=== PATIENT | male | born 1985 | race Caucasian/White ===

== ENCOUNTER 2017-05-10 20:46 | Inpatient (IN) | payer OTHER ==
[~2017-05-10] VITALS: Ht 188 cm; Wt 75.3 kg
[~2017-05-10 20:46] MED LIST: CEPH500C3 PO
[2017-05-10] MEDS ORDERED: HALOPERIDOL LACTATE 5 MG/ML AMP IM ONE (21:00)
[2017-05-10 21:05] VITALS: BP 138/64; PULSE 140; RESP 22; TEMP 99.7; O2SAT 97
--- NOTE | 2017-05-10 21:10 | PD ---
HPI Chief Complaint: Bizarre behavior Time Seen by Provider: 21:10 Travel History International Travel<30 days: No (unknown) Contact w/Intl Traveler<30days: No (unknown) History of Present Illness HPI 31yo M brought in as plunkett act for screaming in parking lot and approaching officers to fight. Pt is combative and a threat to himself and others. He is talking and answering some questions, moving all extremities. Does have some abrasions in his upper back. PFSH Social History Tobacco Use: No Allergies-Medications (Allergen,Severity, Reaction): Coded Allergies: No Known Allergies (Unverified , 03/15/14) Reported Meds & Prescriptions Reported Meds & Active Scripts Active No Active Prescriptions or Reported Medications Review of Systems ROS Limitations: Clinical Condition Physical Exam Narrative GENERAL: 31yo M combative. SKIN: Focused skin assessment warm/dry. HEAD: Atraumatic. Normocephalic. EYES: Pupils equal and round at 4mm bilaterally. ENT: No nasal bleeding or discharge. Mucous membranes pink and moist. NECK: Trachea midline. No JVD. CARDIOVASCULAR: Regular rate and rhythm. No murmur appreciated. RESPIRATORY: No accessory muscle use. Clear to auscultation. Breath sounds equal bilaterally. GASTROINTESTINAL: Abdomen soft, non-tender, nondistended. No rebound tenderness or guarding. MUSCULOSKELETAL: Abrasions on bilateral upper back. NEUROLOGICAL: Awake and alert. Moving all extremities. Limited exam due to being combative. PSYCHIATRIC: Inappropriate mood and affect; poor insight and judgment. Data Data Last Documented VS Vital Signs Date Time Temp Pulse Resp B/P (MAP) Pulse Ox O2 Delivery O2 Flow Rate FiO2 05/10/17 22:31 109 20 127/78 (94) 99 Room Air 05/10/17 21:05 99.7 Orders Orders Haloperidol Inj (Haldol Inj) (05/10/17 21:00) Complete Blood Count With Diff (05/10/17 20:52) Comprehensive Metabolic Panel (05/10/17 20:52) Electrocardiogram (05/10/17 20:52) Psych Screen (05/10/17 20:52) Restraints Non-Violent NENA.Q3H (05/10/17 20:52) Drug Screen, Random Urine (05/10/17 20:52) Alcohol (Ethanol) (05/10/17 20:52) Ct Brain W/O Iv Contrast(Rout) (05/10/17 ) Thyroid Stimulating Hormone (05/10/17 20:52) Chest, Single Ap (05/10/17 ) Sodium Chlor 0.9% 1000 Ml Inj (Ns 1000 M (05/10/17 21:30) Creatine Kinase (Cpk) (05/10/17 21:17) CKMB (05/10/17 20:52) CKMB% (05/10/17 20:52) Sodium Chlor 0.9% 1000 Ml Inj (Ns 1000 M (05/10/17 22:45) Sodium Chlor 0.9% 1000 Ml Inj (Ns 1000 M (05/10/17 22:45) Admit Order (Ed Use Only) (05/10/17 22:51) Labs Laboratory Tests Test 05/10/17 20:52 05/10/17 21:05 Total Creatine Kinase 5293 U/L Creatine Kinase MB 4.3 NG/ML Creatine Kinase MB % 0.1 % White Blood Count 10.9 TH/MM3 Red Blood Count 5.06 MIL/MM3 Hemoglobin 15.3 GM/DL Hematocrit 44.0 % Mean Corpuscular Volume 86.8 FL Mean Corpuscular Hemoglobin 30.3 PG Mean Corpuscular Hemoglobin Concent 34.9 % Red Cell Distribution Width 12.7 % Platelet Count 235 TH/MM3 Mean Platelet Volume 7.0 FL Neutrophils (%) (Auto) 40.7 % Lymphocytes (%) (Auto) 54.6 % Monocytes (%) (Auto) 4.1 % Eosinophils (%) (Auto) 0.2 % Basophils (%) (Auto) 0.4 % Neutrophils # (Auto) 4.4 TH/MM3 Lymphocytes # (Auto) 5.9 TH/MM3 Monocytes # (Auto) 0.4 TH/MM3 Eosinophils # (Auto) 0.0 TH/MM3 Basophils # (Auto) 0.0 TH/MM3 CBC Comment AUTO DIFF Differential Total Cells Counted 100 Neutrophils % (Manual) 30 % Lymphocytes % 66 % Monocytes % 2 % Basophils % 1 % Neutrophils # (Manual) 3.4 TH/MM3 Metamyelocytes 1 % Differential Comment FINAL DIFF MANUAL Platelet Estimate NORMAL Platelet Morphology Comment NORMAL Red Cell Morphology Comment NORMAL Blood Urea Nitrogen 11 MG/DL Creatinine 1.41 MG/DL Random Glucose 113 MG/DL Total Protein 7.9 GM/DL Albumin 4.4 GM/DL Calcium Level 9.4 MG/DL Alkaline Phosphatase 65 U/L Aspartate Amino Transf (AST/SGOT) 84 U/L Alanine Aminotransferase (ALT/SGPT) 41 U/L Total Bilirubin 0.9 MG/DL Sodium Level 143 MEQ/L Potassium Level 3.5 MEQ/L Chloride Level 111 MEQ/L Carbon Dioxide Level 19.3 MEQ/L Anion Gap 13 MEQ/L Estimat Glomerular Filtration Rate 59 ML/MIN Thyroid Stimulating Hormone 3rd Gen 1.260 uIU/ML Ethyl Alcohol Level 295 MG/DL [facility] Medical Decision Making Medical Screen Exam Complete: Yes Emergency Medical Condition: Yes Interpretation(s) EKG: Sinus tachycardia at 113bpm. Normal axis. No ST segment elevation or depression. Differential Diagnosis Drug induced psychosis vs. schizophrenia vs. ICH v. electrolyte abnormality Narrative Course 31yo M brought in as plunkett act for screaming, approaching police radio dispatcher to fight. Pt is acting bizarre. However, we do not have any prior record of a psych history. He does have some abrasion on bilateral upper back. Lungs are clear. Will do CXR. Will do CT brain since pt does not have a psych history on our record. Pt given haldol 5mg IM because he was a threat to himself and others and placed in soft restraints. Labs reviewed, no leukocytosis. CPK elevated at 5293. Creatinine elevated at 1.41. Pt given NS IVF x2. CXR and CT brain negative. Discussed with Dr. Brush and accepted to her service for rhabdomyolysis and ARLENE. Diagnosis Primary Impression: Rhabdomyolysis Qualified Codes: M62.82 - Rhabdomyolysis Admitting Information Admitting Physician Requests: Observation Scripts No Active Prescriptions or Reported Meds Yue Zhang DO May 10, 2017 21:10
[2017-05-10] MEDS ORDERED: SODIUM CHLOR 0.9% 1000 ML INJ 1,000 ML IV ONE ×3 (21:30→22:45)
--- NOTE | 2017-05-10 21:35 | RADRPT ---
EXAM DATE/TIME: 05/10/2017 21:08 [facility] COMPARISON: No previous studies available for comparison. INDICATIONS : Altered mental status- shortness of breath. MEDICAL HISTORY : None. SURGICAL HISTORY : None. ENCOUNTER: Initial ACUITY: 1 day PAIN SCORE: Non-responsive. LOCATION: Bilateral chest FINDINGS: A single view of the chest demonstrates the lungs to be symmetrically aerated without evidence of mas s, infiltrate or effusion. The cardiomediastinal contours are unremarkable. Osseous structures are intact. CONCLUSION: No acute disease. Cory Aguero MD on May 10, 2017 at 21:34 Board Certified Radiologist. This report was verified electronically.
[2017-05-10 21:36] LABS: AUTOMATED NEUTROPHIL # 4.4 TH/MM3 (1.8-7.7); BASOPHIL % 0.4 % (0.0-2.0); EOSINOPHIL % 0.2 % (0.0-4.0); LYMPH % 54.6 % (9.0-44.0); LYMPHOCYTE # 5.9 TH/MM3 (1.0-4.8); MEAN CELL VOLUME 86.8 FL (80.0-100.0); MEAN CORPUSCULAR HEMOGLOBIN 30.3 PG (27.0-34.0); MEAN CORPUSCULAR HGB CONC 34.9 % (32.0-36.0); MONO % 4.1 % (0.0-8.0); NEUT % 40.7 % (16.0-70.0); PLATELET COUNT 235 TH/MM3 (150-450); RED BLOOD COUNT 5.06 MIL/MM3 (4.50-5.90); RED CELL DISTRIBUTION WIDTH 12.7 % (11.6-17.2); WHITE BLOOD COUNT 10.9 TH/MM3 (4.0-11.0)
[2017-05-10 21:39] LABS: HEMO FLAGS AUTO DIFF
[2017-05-10 21:52] LABS: ANION GAP 13 MEQ/L (5-15); AST (GOT) 84 U/L (15-37); BICARBONATE 19.3 MEQ/L (21.0-32.0); BLOOD UREA NITROGEN 11 MG/DL (7-18); CHLORIDE 111 MEQ/L (98-107); GLOMERULAR FILTRATION RATE 59 ML/MIN (>89); POTASSIUM 3.5 MEQ/L (3.5-5.1); SODIUM (NA) 143 MEQ/L (136-145)
[2017-05-10 21:54] LABS: ALT (GPT) 41 U/L (12-78)
[2017-05-10 22:03] LABS: ALKALINE PHOSPHATASE 65 U/L (45-117); TOTAL BILIRUBIN ADULT 0.9 MG/DL (0.2-1.0)
[2017-05-10 22:04] LABS: BASOPHILS 1 % (0-2); METAMYELOCYTES 1 % (0-1); NEUTROPHIL # MANUAL DIFF 3.4 TH/MM3 (1.8-7.7); POLYS (SEG NEUTROPHILS) 30 % (16-70); WBC DIFF SAMPLE 100
[2017-05-10 22:07] LABS: PLATELET ESTIMATE SMEAR NORMAL (NORMAL); PLATELET MORPHOLOGY NORMAL (NORMAL)
[2017-05-10 22:08] LABS: SCAN/DIFF FINAL DIFF MANUAL
[2017-05-10 22:09] LABS: ALCOHOL 295 MG/DL (0-5)
[2017-05-10 22:31] VITALS: BP 127/78; PULSE 109; RESP 20; O2SAT 99
--- NOTE | 2017-05-10 22:47 | RADRPT ---
EXAM DATE/TIME: 05/10/2017 22:10 [facility] COMPARISON: No previous studies available for comparison. INDICATIONS : Altered mental status. RADIATION DOSE: 37.90 CTDIvol (mGy) MEDICAL HISTORY : Non-responsive. SURGICAL HISTORY : Non-responsive. ENCOUNTER: Initial ACUITY: 1 day PAIN SCALE: Non-responsive LOCATION: cranial TECHNIQUE: Multiple contiguous axial images were obtained of the head. Using automated exposure control and adj ustment of the mA and/or kV according to patient size, radiation dose was kept as low as reasonably a chievable to obtain optimal diagnostic quality images. DICOM format image data is available electro nically for review and comparison. FINDINGS: CEREBRUM: The ventricles are normal for age. No evidence of midline shift, mass lesion, hemorrhage or acute in farction. No extra-axial fluid collections are seen. POSTERIOR FOSSA: The cerebellum and brainstem are intact. The 4th ventricle is midline. The cerebellopontine angle i s unremarkable. EXTRACRANIAL: The visualized portion of the orbits is intact. SKULL: The calvaria is intact. No evidence of skull fracture. CONCLUSION: No acute disease. Cory Aguero MD on May 10, 2017 at 22:45 Board Certified Radiologist. This report was verified electronically.
[2017-05-10 23:00] LABS: CKMB 4.3 NG/ML (0.5-3.6)
[2017-05-10] MEDS ORDERED: LACTULOSE SYRUP 20 GM/30 ML CUP PO PRN (23:15)
[2017-05-10] MEDS ORDERED: MAGNESIUM HYDROXIDE SUSP 30 ML CUP PO PRN (23:15)
[2017-05-10] MEDS ORDERED: BISACODYL 10 MG SUPP RECTAL PRN (23:15)
[2017-05-10] MEDS ORDERED: ACETAMINOPHEN 325 MG TAB PO PRN (23:15)
[2017-05-10] MEDS ORDERED: SENNOSIDES 8.6 MG TAB PO PRN (23:15)
[2017-05-10] MEDS ORDERED: ONDANSETRON HCL 4 MG/2 ML VIAL IVP PRN (23:15)
--- NOTE | 2017-05-10 23:18 | HHI.HP ---
[facility] Unknown Admission Diagnosis Rhabdomyolysis Diagnoses: (1) Agitation Diagnosis: Principal (2) Rhabdomyolysis Diagnosis: Principal (3) Renal insufficiency Diagnosis: Principal (4) Alcohol intoxication Diagnosis: Principal Travel History International Travel<30 Days: No (unknown) Contact w/Intl Traveler <30 Da: No (unknown) Traveled to Known Affected Are: No History of Present Illness This is a 31-year-old male with no apparent PMH was brought to the ER by Police under Mckay Act secondary to agitation/delirium. Pt was apparently found screaming in the street, attempting to fight officers when they approached. Significantly combative, deemed a threat to himself/others and placed under Mckay Act. Pt not providing any history at the moment. BP 130/64, HR 140, O2 sat 97% on RA, Temp 99.7. CBC essentially unremarkable. Creatinine 1.41, no previous labs for comparison. CPK 5293. Alcohol 295. CT Head with no acute findings. Currently in restraints, s/p Haldol in ER. Review of Systems Except as stated in HPI: all other systems reviewed are Neg ROS: 14 point review of systems otherwise negative. Past Family Social History Past Medical History PMH: None Past Surgical History PAST SURGICAL HISTORY: Unknown Allergies: Coded Allergies: No Known Allergies (Unverified , 03/15/14) Family History PAST FAMILY HISTORY: Unknown Social History PAST SOCIAL HISTORY: Unknown Physical Exam Vital Signs Vital Signs Date Time Temp Pulse Resp B/P (MAP) Pulse Ox O2 Delivery O2 Flow Rate FiO2 05/10/17 22:31 109 20 127/78 (94) 99 Room Air 05/10/17 21:05 99.7 140 22 138/64 (88) 97 Physical Exam PE: GENERAL: Elderly white male in no acute distress, currently calm after Haldol, + restraints. HEENT: PERRLA, EOMI. No scleral icterus or conjunctival pallor. No lid lag or facial droop. CARDIOVASCULAR: Regular rate and rhythm. No obvious murmurs to auscultation. No chest tenderness to palpation. RESPIRATORY: No obvious rhonchi or wheezing. Clear to auscultation. Breath sounds equal bilaterally. GASTROINTESTINAL: Abdomen soft, non-tender, nondistended. BS normal. MUSCULOSKELETAL: Extremities without clubbing, cyanosis, or edema. No obvious deformities. NEUROLOGICAL: Lethargic. No focal neurologic deficits. Moving both upper and lower extremities spontaneously. Laboratory Laboratory Tests Test 05/10/17 20:52 05/10/17 21:05 Total Creatine Kinase 5293 Creatine Kinase MB 4.3 Creatine Kinase MB % 0.1 White Blood Count 10.9 Red Blood Count 5.06 Hemoglobin 15.3 Hematocrit 44.0 Mean Corpuscular Volume 86.8 Mean Corpuscular Hemoglobin 30.3 Mean Corpuscular Hemoglobin Concent 34.9 Red Cell Distribution Width 12.7 Platelet Count 235 Mean Platelet Volume 7.0 Neutrophils (%) (Auto) 40.7 Lymphocytes (%) (Auto) 54.6 Monocytes (%) (Auto) 4.1 Eosinophils (%) (Auto) 0.2 Basophils (%) (Auto) 0.4 Neutrophils # (Auto) 4.4 Lymphocytes # (Auto) 5.9 Monocytes # (Auto) 0.4 Eosinophils # (Auto) 0.0 Basophils # (Auto) 0.0 CBC Comment AUTO DIFF Differential Total Cells Counted 100 Neutrophils % (Manual) 30 Lymphocytes % 66 Monocytes % 2 Basophils % 1 Neutrophils # (Manual) 3.4 Metamyelocytes 1 Differential Comment FINAL DIFF MANUAL Platelet Estimate NORMAL Platelet Morphology Comment NORMAL Red Cell Morphology Comment NORMAL Blood Urea Nitrogen 11 Creatinine 1.41 Random Glucose 113 Total Protein 7.9 Albumin 4.4 Calcium Level 9.4 Alkaline Phosphatase 65 Aspartate Amino Transf (AST/SGOT) 84 Alanine Aminotransferase (ALT/SGPT) 41 Total Bilirubin 0.9 Sodium Level 143 Potassium Level 3.5 Chloride Level 111 Carbon Dioxide Level 19.3 Anion Gap 13 Estimat Glomerular Filtration Rate 59 Thyroid Stimulating Hormone 3rd Gen 1.260 Ethyl Alcohol Level 295 Result Diagram: 05/10/17210405/10/172104 Caprini VTE Risk Assessment Caprini VTE Risk Assessment: No/Low Risk (score <= 1) Caprini Risk Assessment Model Point Value = 1 Point Value = 2 Point Value = 3 Point Value = 5 Age 41-60 Minor surgery BMI > 25 kg/m2 Swollen legs Varicose veins or History of unexplained or recurrent spontaneous Oral contraceptives or hormone replacement Sepsis (< 1 month) Serious lung disease, including pneumonia (< 1 month) Abnormal pulmonary function Acute myocardial infarction Congestive heart failure (< 1 month) History of inflammatory bowel disease Medical patient at bed rest Age 61-74 Arthroscopic surgery Major open surgery (> 45 min) Laparoscopic surgery (> 45 min) Malignancy Confined to bed (> 72 hours) Immobilizing plaster cast Central venous access Age >= 75 History of VTE Family history of VTE Factor V Leiden Prothrombin [id number] Lupus anticoagulant Anticardiolipin antibodies Elevated serum homocysteine Heparin-induced thrombocytopenia Other congenital or acquired thrombophilia Stroke (< 1 month) Elective arthroplasty Hip, pelvis, or leg fracture Acute spinal cord injury (< 1 month) Prophylaxis Regimen Total Risk Factor Score Risk Level Prophylaxis Regimen 0-1 Low Early ambulation 2 Moderate Order ONE of the following: *Sequential Compression Device (SCD) *Heparin 5000 units SQ BID 3-4 Higher Order ONE of the following medications: *Heparin 5000 units SQ TID *Enoxaparin/Lovenox 40 mg SQ daily (WT < 150 kg, CrCl > 30 mL/min) *Enoxaparin/Lovenox 30 mg SQ daily (WT < 150 kg, CrCl > 10-29 mL/min) *Enoxaparin/Lovenox 30 mg SQ BID (WT < 150 kg, CrCl > 30 mL/min) AND/OR *Sequential Compression Device (SCD) 5 or more Highest Order ONE of the following medications: *Heparin 5000 units SQ TID (Preferred with Epidurals) *Enoxaparin/Lovenox 40 mg SQ daily (WT < 150 kg, CrCl > 30 mL/min) *Enoxaparin/Lovenox 30 mg SQ daily (WT < 150 kg, CrCl > 10-29 mL/min) *Enoxaparin/Lovenox 30 mg SQ BID (WT < 150 kg, CrCl > 30 mL/min) AND *Sequential Compression Device (SCD) Assessment and Plan Problem List: (1) Agitation ICD Code: R45.1 - Restlessness and agitation (2) Rhabdomyolysis ICD Code: M62.82 - Rhabdomyolysis (3) Renal insufficiency ICD Code: N28.9 - Disorder of kidney and ureter, unspecified (4) Alcohol intoxication ICD Code: F10.929 - Alcohol use, unspecified with intoxication, unspecified Assessment and Plan A/P: 1. Agitation: likely drug-related, significantly combative/threat to himself and others, currently under Mckay Act. U/a and Urine Drug Screen pending, s/p Haldol in ER, +restraints. Ativan prn as needed, CT Head w/ no acute findings, images reviewed by me. 2. Rhabdomyolysis: CPK 5293, suspected secondary to drug use specifically cocaine, Urine Drug Screen pending. IVF for hydration, repeat CPK for trend. 3. Alcohol Intoxication: Alcohol 295, IVF, Ativan IV prn 4. Renal Insufficiency: Creatinine 1.41, no previous labs for comparison, IVF for hydration, repeat labs in am. 5. DVT Prophylaxis: SCD/Teds. 6. Social work for d/c planning as needed. 7. Case discussed w/ ER physician at length Physician Certification 2 Midnight Certification Type: Admission for Inpatient Services Order for Inpatient Services The services are ordered in accordance with Medicare regulations or non- Medicare payer requirements, as applicable. In the case of services not specified as inpatient-only, they are appropriately provided as inpatient services in accordance with the 2-midnight benchmark. Estimated LOS (days): 2 days is the estimated time the patient will need to remain in the hospital, assuming treatment plan goals are met and no additional complications. Post-Hospital Plan: Not yet determined Kamilah Brush MD May 10, 2017 23:18
[2017-05-10] MEDS: SODIUM CHLOR 0.9% 1000 ML INJ 1,000 ML IV SCH (23:24)
[2017-05-11] VITALS (8 sets, daily range): BP systolic 105–134; BP diastolic 54–75; PULSE 63–97; RESP 18–20; TEMP 97–98.7; O2SAT 97–99
[2017-05-11] MEDS: SODIUM CHLOR 0.9% 1000 ML INJ 1,000 ML IV SCH ×3 (02:57→16:45)
--- NOTE | 2017-05-11 07:36 | EKG ---
Date Performed: 05/10/2017 Time Performed: 21:14:00 PTAGE: 31 years EKG: Baseline artifact present Probable sinus tachycardia ABNORMAL RHYTHM ECG NO PREVIOUS TRACING DOCTOR: Dustin Cobb Interpretating Date/Time 05/11/2017 07:35:29
[2017-05-11 07:55] LABS: AUTOMATED NEUTROPHIL # 7.6 TH/MM3 (1.8-7.7); BASOPHIL % 0.2 % (0.0-2.0); EOSINOPHIL % 0.2 % (0.0-4.0); HEMATOCRIT 40.1 % (39.0-51.0); HEMO FLAGS DIFF FINAL; LYMPHOCYTE # 2.7 TH/MM3 (1.0-4.8); MEAN CELL VOLUME 86.3 FL (80.0-100.0); MEAN CORPUSCULAR HEMOGLOBIN 30.2 PG (27.0-34.0); MONO % 5.3 % (0.0-8.0); NEUT % 69.3 % (16.0-70.0); PLATELET COUNT 177 TH/MM3 (150-450); RED BLOOD COUNT 4.65 MIL/MM3 (4.50-5.90); RED CELL DISTRIBUTION WIDTH 12.9 % (11.6-17.2)
[2017-05-11] MEDS: SODIUM CHLORIDE 0.9% FLUSH 10 ML FLUSH IV FLUSH SCH ×2 (08:26→21:00)
[2017-05-11] MEDS: DOCUSATE SODIUM 50 MG/SENNA 8.6 MG TAB PO SCH ×2 (08:26→21:24)
[2017-05-11 08:36] LABS: ALKALINE PHOSPHATASE 60 U/L (45-117); ALT (GPT) 45 U/L (12-78); ANION GAP 9 MEQ/L (5-15); AST (GOT) 106 U/L (15-37); BICARBONATE 21.7 MEQ/L (21.0-32.0); BLOOD UREA NITROGEN 9 MG/DL (7-18); CHLORIDE 114 MEQ/L (98-107); CREATINE KINASE 5965 U/L (39-308); GLOMERULAR FILTRATION RATE 90 ML/MIN (>89); POTASSIUM 3.6 MEQ/L (3.5-5.1); SODIUM (NA) 145 MEQ/L (136-145)
[2017-05-11 09:10] LABS: CKMB 10.4 NG/ML (0.5-3.6)
[2017-05-11] MEDS: SODIUM CHLORIDE 0.9% FLUSH 10 ML FLUSH IV FLUSH PRN ×2 (11:31→18:39)
[2017-05-11] MEDS: LORazepam 2 MG/ML VIAL IV PUSH PRN ×2 (11:31→18:39)
--- NOTE | 2017-05-11 12:10 | HHI.PR ---
Subjective Remarks f/u Altered mental status and rhabdomyolysis Patient stated that he was drunk last night. He is AAO 3. He denies any depression, suicidal homicidal ideations. He is asking to go home. Patient stated that he does not take any drugs and that this was purely alcohol. He has no other complaints. His sitter and his nurse at the bedside during interview. Objective Vitals Vital Signs Date Time Temp Pulse Resp B/P (MAP) Pulse Ox O2 Delivery O2 Flow Rate FiO2 05/11/17 12:00 98.7 97 20 134/75 (94) 99 05/11/17 08:36 75 05/11/17 07:55 98.5 79 20 105/54 (71) 97 05/11/17 06:03 63 05/11/17 03:30 127/70 (89) 05/11/17 03:30 97.0 84 20 127/70 (89) 97 05/11/17 00:09 05/10/17 22:31 109 20 127/78 (94) 99 Room Air 05/10/17 21:05 99.7 140 22 138/64 (88) 97 I/O 05/10/17 05/10/17 05/10/17 05/11/17 05/11/17 05/11/17 06:59 14:59 22:59 06:59 14:59 22:59 Intake Total 4000 ml 2000 ml Balance 4000 ml 2000 ml Intake IV Total 4000 ml 2000 ml Result Diagram: 05/11/17 0706 05/11/17 0706 Objective Remarks GENERAL: in NAD CARDIOVASCULAR: Regular rate and rhythm without murmurs, gallops, or rubs. RESPIRATORY: Breath sounds equal bilaterally. No accessory muscle use. GASTROINTESTINAL: Abdomen soft, non-tender, nondistended. MUSCULOSKELETAL: No cyanosis, or edema. BACK: Nontender without obvious deformity. No CVA tenderness. Medications and IVs Current Medications Haloperidol Lactate (Haldol Inj) 5 mg ONCE ONCE IM Last administered on 21:05; Start 05/10/17 at 21:00; Stop 05/10/17 at 21:01; Status DC Sodium Chloride 1,000 ml @ 999 mls/hr BOLUS ONCE IV Last administered on 21:22; Start 05/10/17 at 21:30; Stop 05/10/17 at 22:30; Status DC Sodium Chloride 1,000 ml @ 999 mls/hr BOLUS ONCE IV Last administered on 22:35; Start 05/10/17 at 22:45; Stop 05/10/17 at 23:45; Status DC Sodium Chloride 1,000 ml @ 999 mls/hr BOLUS ONCE IV Last administered on 22:35; Start 05/10/17 at 22:45; Stop 05/10/17 at 23:45; Status DC Sodium Chloride 1,000 ml @ 100 mls/hr Q10H IV Last administered on 05/10/17 23:24; Start 05/10/17 at 23:08 Sodium Chloride (NS Flush) 2 ml UNSCH PRN IV FLUSH FLUSH AFTER USING IV ACCESS Last administered on 05/11/17 11:31; Start 05/10/17 at 23:15 Sodium Chloride (NS Flush) 2 ml BID IV FLUSH ; Start 05/11/17 at 09:00 Ondansetron HCl (Zofran Inj) 4 mg Q6H PRN IVP NAUSEA OR VOMITING; Start at 23:15 Acetaminophen (Tylenol) 650 mg Q6H PRN PO FEVER/PAIN SCALE 1 TO 2; Start 05/10 at 23:15 Senna/Docusate Sodium (Angelica-Colace) 1 tab BID PO ; Start 05/11/17 at 09:00 Magnesium Hydroxide (Milk Of Magnesia Liq) 30 ml Q12H PRN PO Mild constipation ; Start 05/10/17 at 23:15 Sennosides (Senokot) 17.2 mg Q12H PRN PO Moderate constipation; Start at 23:15 Bisacodyl (Dulcolax Supp) 10 mg DAILY PRN RECTAL SEVERE CONSITIPATION/ IF NPO; Start 05/10/17 at 23:15 Lactulose (Lactulose Liq) 30 ml DAILY PRN PO SEVERE CONSITIPATION; Start 05/10 at 23:15 Lorazepam (Ativan Inj) 1 mg Q2H PRN IV PUSH AGITATION/WITHDRAWAL Last administered on 05/11/17 11:31; Start 05/10/17 at 23:30 A/P Problem List: (1) Agitation ICD Code: R45.1 - Restlessness and agitation (2) Rhabdomyolysis ICD Code: M62.82 - Rhabdomyolysis (3) Renal insufficiency ICD Code: N28.9 - Disorder of kidney and ureter, unspecified (4) Alcohol intoxication ICD Code: F10.929 - Alcohol use, unspecified with intoxication, unspecified Assessment and Plan Altered mental status, resolved. -Most likely metabolic secondary to drug use. Positive for alcohol. Will get urine drug screen. Patient currently Mckay act. CT scan the head is negative. -Symptoms since to resolve and he seems back to his baseline. Pending consult from psychiatrist due to Mckay act. Rhabdomyolysis: CPK 5293, suspected secondary to drug -CPK stable. Creatinine improved drastically. Continued to encourage fluid intake. -Still pending urine drug screen. Dealt with patient's nurse. Also educated patient in regards to diagnosis and he stated that he understood. Alcohol Intoxication: Alcohol 295 -Education on alcohol use. -Continue IV fluids. Acute renal insufficiency: Creatinine 1.41 -Most likely secondary to dehydration and rhabdomyolysis. -Resolved. -Continue to encourage fluid intake. DVT Prophylaxis: SCD/Teds. Discharge Planning If patient is able to tolerate oral intake and is cleared by psychiatrists can be discharged home. Marry Moore MD May 11, 2017 12:09
[2017-05-11 12:14] LABS: BLOOD, URINE NEG (NEG); COMMENT (UR) CULT NOT INDICATED; CULTURE IF INDICATED CULT NOT INDICATED; GLUCOSE,URINE NEG (NEG); KETONE, URINE TRACE mg/dL (NEG); MUCUS URINE FEW /lpf (OCC); NITRITE,URINE NEG (NEG); PH, URINE 5.5 (5.0-8.5); SQUAMOUS EPITHELIAL CELL URINE <1 /hpf (0-5); URINE COLOR YELLOW (YELLW/STRAW)
[2017-05-11 14:42] LABS: CKMB 8.8 NG/ML (0.5-3.6)
[2017-05-12] VITALS: BP 118/63; PULSE 100; RESP 18; TEMP 98.9; O2SAT 95
[2017-05-12 04:00] VITALS: BP 128/73; PULSE 84; RESP 20; TEMP 97; O2SAT 94
[2017-05-12] MEDS: SODIUM CHLOR 0.9% 1000 ML INJ 1,000 ML IV SCH (05:08)
[2017-05-12 08:31] VITALS: BP 135/79; PULSE 85; RESP 20; TEMP 97.9; O2SAT 100
[2017-05-12] MEDS: SODIUM CHLORIDE 0.9% FLUSH 10 ML FLUSH IV FLUSH SCH (09:00)
[2017-05-12] MEDS: DOCUSATE SODIUM 50 MG/SENNA 8.6 MG TAB PO SCH (09:00)
--- NOTE | 2017-05-12 11:24 | HHI.DS ---
Discharge Summary Admission Date May 10, 2017 at 22:52 Discharge Date: May 12, 2017 Admitting Diagnosis Rhabdomyolysis (1) Agitation ICD Code: R45.1 - Restlessness and agitation Diagnosis: Principal (2) Rhabdomyolysis ICD Code: M62.82 - Rhabdomyolysis (3) Renal insufficiency ICD Code: N28.9 - Disorder of kidney and ureter, unspecified Diagnosis: Principal (4) Alcohol intoxication ICD Code: F10.929 - Alcohol use, unspecified with intoxication, unspecified Diagnosis: Principal Procedures See hospital course Brief History - From Admission This is a 31-year-old male with no apparent PMH was brought to the ER by Police under Mckay Act secondary to agitation/delirium. Pt was apparently found screaming in the street, attempting to fight officers when they approached. Significantly combative, deemed a threat to himself/others and placed under Mckay Act. Pt not providing any history at the moment. BP 130/64, HR 140, O2 sat 97% on RA, Temp 99.7. CBC essentially unremarkable. Creatinine 1.41, no previous labs for comparison. CPK 5293. Alcohol 295. CT Head with no acute findings. Currently in restraints, s/p Haldol in ER. CBC/BMP: 05/11/17 0706 05/11/17 0706 Significant Findings Laboratory Tests Test 05/10/17 20:52 05/10/17 21:05 05/11/17 07:06 05/11/17 11:40 Total Creatine Kinase 5293 U/L (39-308) 5965 U/L (39-308) Creatine Kinase MB 4.3 NG/ML (0.5-3.6) 10.4 NG/ML (0.5-3.6) Lymphocytes (%) (Auto) 54.6 % (9.0-44.0) Lymphocytes # (Auto) 5.9 TH/MM3 (1.0-4.8) Lymphocytes % 66 % (9-44) Creatinine 1.41 MG/DL (0.60-1.30) Random Glucose 113 MG/DL (74-106) 73 MG/DL (74-106) Aspartate Amino Transf (AST/SGOT) 84 U/L (15-37) 106 U/L (15-37) Chloride Level 111 MEQ/L (98-107) 114 MEQ/L (98-107) Carbon Dioxide Level 19.3 MEQ/L (21.0-32.0) Estimat Glomerular Filtration Rate 59 ML/MIN (>89) Ethyl Alcohol Level 295 MG/DL (0-5) Calcium Level 7.9 MG/DL (8.5-10.1) Urine Ketones TRACE mg/dL (NEG) Urine Mucus FEW /lpf (OCC) Test 05/11/17 13:10 Total Creatine Kinase 6156 U/L (39-308) Creatine Kinase MB 8.8 NG/ML (0.5-3.6) Imaging Last Impressions Head CT 05/10/17 0000 Signed Impressions: Service Date/Time: Wednesday, May 10, 2017 22:10 - CONCLUSION: No acute disease. Cory Aguero MD Chest X-Ray 05/10/17 0000 Signed Impressions: Service Date/Time: Wednesday, May 10, 2017 21:08 - CONCLUSION: No acute disease. Cory Aguero MD PE at Discharge GENERAL: in NAD CARDIOVASCULAR: Regular rate and rhythm without murmurs, gallops, or rubs. RESPIRATORY: Breath sounds equal bilaterally. No accessory muscle use. GASTROINTESTINAL: Abdomen soft, non-tender, nondistended. MUSCULOSKELETAL: No cyanosis, or edema. BACK: Nontender without obvious deformity. No CVA tenderness. Pt update on day of discharge Follow-up for agitation Patient is AAO 4. He is not agitated. He is doing well. He has no complaints. He is having good urine output. Patient stated that he saw the psychiatrist and he was told that he can go home. I told patient that I order labs and patient stated that he did not want any labs. Patient denied any depression. Denied any suicidal or homicidal ideations. Hospital Course Altered mental status, resolved. -Most likely metabolic secondary alcoholism. Urine drug screen was negative. Patient currently Mckay act. CT scan the head is negative. -Resolved quickly with time and IV fluids. Since patient was Mckay act psychiatrist was consulted and lifted the Mckay act. Rhabdomyolysis: CPK 5293 -Patient was given IV fluids with improvement in his renal function. -He was then transferred to oral fluids since he was able to tolerate oral intake. Alcohol Intoxication: Alcohol 295 -Education on alcohol use. Acute renal insufficiency: Creatinine 1.41 -Most likely secondary to dehydration and rhabdomyolysis. -Patient was given IV fluids. Acute renal failure resolved with IV fluids. Pt Condition on Discharge: Good Discharge Disposition: Discharge Home Discharge Time: <= 30 minutes Discharge Instructions DIET: Follow Instructions for: As Tolerated, No Restrictions Activities you can perform: Regular-No Restrictions Other Activity Instructions: Avoid excessive alcohol. Follow up Referrals: PCP Follow-up - 1 Week Discontinued Medications: Cephalexin (Keflex) 500 Mg Cap 500 MG PO Q8, #30 Marry Acevedo MD May 12, 2017 11:24
--- NOTE | 2017-05-12 11:24 | HHI.DCPOC ---
Discharge Care Plan Diagnosis: (1) Rhabdomyolysis (2) Renal insufficiency (3) Alcohol intoxication Goals to Promote Your Health * To prevent worsening of your condition and complications * To maintain your health at the optimal level Directions to Meet Your Goals Take your medications as prescribed Follow your dietary instruction Follow activity as directed Keep your appointments as scheduled Take your immunizations and boosters as scheduled If your symptoms worsen call your PCP, if no PCP go to Urgent Care Center or Emergency Room Smoking is Dangerous to Your Health. Avoid second hand smoke Call the 24-hour hour crisis hotline for domestic abuse at Marry Moore MD May 12, 2017 11:24
[2017-05-12 11:51] LABS: BICARBONATE 21.3 MEQ/L (21.0-32.0); POTASSIUM 3.3 MEQ/L (3.5-5.1)
[2017-05-12 12:26] LABS: CKMB 4.1 NG/ML (0.5-3.6)
--- NOTE | 2017-05-12 15:55 | PD.PSY.CON ---
Provisional Diagnosis Admission Date May 10, 2017 at 22:52 Seg[place] I. Alcohol use disorder, alcohol induced mood disorder, history of ADHD Seguin II. Deferred [place] III. No significant medical history History of Present Illness Service Psychiatry Consult Requested By Reason for Consult Mckay act Primary Care Physician Unknown HPI The patient is a 31 years old man, domiciled with his mother, employed , single, with psychiatric history of ADHD, no previous psychiatric hospitalizations, no previous suicidal attempts, alcohol use disorder, no significant medical history, who was brought to the ER under Mckay act by law enforcement due to agitation, aggressive and disorganized behavior industry in the context of alcohol intoxication. On psychiatric evaluation today patient is calm, cooperative and pleasant. Patient says that he was drinking a lot of alcohol, he was completely drunk, he already forgot the reason he was brought to the hospital. Patient denies depressive symptoms, he denies anxiety, he denies rigoberto, he denies psychosis. He denies suicidal and homicidal ideation, he denies visual and auditory hallucinations. He is oriented 3, logical coherent and relevant. No agitation, no aggressive behavior, no paranoia, no delusions of reference are present during this hospitalization. He reports occasional use of alcohol, denies the use of drugs. Review of Systems Except as stated in HPI: all other systems reviewed are Neg Past Family Social History Coded Allergies: No Known Allergies (Unverified , 03/15/14) Discontinued Scripts Cephalexin (Keflex) 500 Mg Cap, 500 MG PO Q8, #30 CAP Prov:Linus Perkins Jr, MD 03/08/14 Social History Patient was born and raised in [place], his mother [place], he is employed, single, his highest level of education is a GED Patient's Strengths (min. 2) Employed Physical Exam Vital Signs Vital Signs Date Time Temp Pulse Resp B/P (MAP) Pulse Ox O2 Delivery O2 Flow Rate FiO2 05/12/17 08:31 97.9 85 20 135/79 (97) 100 05/10/17 22:31 Room Air I/O 05/12/17 05/12/17 05/13/17 08:00 16:00 00:00 Intake Total 1000 ml Balance 1000 ml Lab Results Test 05/12/17 11:15 Blood Urea Nitrogen 9 MG/DL Creatinine 1.03 MG/DL Random Glucose 101 MG/DL Calcium Level 9.1 MG/DL Sodium Level 141 MEQ/L Potassium Level 3.3 MEQ/L Chloride Level 109 MEQ/L Carbon Dioxide Level 21.3 MEQ/L Anion Gap 11 MEQ/L Estimat Glomerular Filtration Rate 84 ML/MIN Total Creatine Kinase 5444 U/L Creatine Kinase MB 4.1 NG/ML Creatine Kinase MB % 0.1 % Mental Status Examination Appearance: Appropriate Consciousness: Alert Orientation: x4 Motor Activity: Normal gait Speech: Unremarkable Language: Adequate Fund of Knowledge: Adequate Attention and Concentration: Adequate Memory: Unremarkable Mood: Appropriate Affect: Appropriate Thought Process & Associations: Intact Thought Content: Appropriate Hallucination Type: None Delusion Type: None Suicidal Ideation: No Suicidal Plan: No Suicidal Intention: No Homicidal Ideation: No Homicidal Plan: No Homicidal Intention: No Insight: Adequate Judgment: Adequate Assessment & Plan Problem List: (1) Alcohol abuse with alcohol-induced mood disorder ICD Codes: F10.14 - Alcohol abuse with alcohol-induced mood disorder Assessment & Plan: On psychiatric evaluation today the patient does not present any evidence of acute or significant symptomatology of depression, anxiety, rigoberto or psychosis. Patient denies suicidal and homicidal ideation, he denies visual and auditory hallucinations. She is calm, cooperative and pleasant during the evaluation. Patient has multiple protective factors for suicidality clubbing unemployment, family support. Recent agitation and disorganized behavior in the street for which he was [place]ckay acted by police, seems to be related with alcohol intoxication. He does not meet criteria for involuntary psychiatric admission at this moment. Extensive psychoeducation and support provided. Mckay act will be lifted. Assessment & Plan Estimated LOS: Diego Vidal MD May 12, 2017 15:55
== END 2017-05-12 12:06 | disposition home or self-care (01) | DRG 683 ==
LOC: NEPE 20:46 → NEDA 22:52 → N05B 05-11 03:34
PROVIDERS: ADMIT Family Medicine; ATTEND Family Medicine
DX: N17.9 Acute kidney failure, unspecified (principal); M62.82 Rhabdomyolysis; F10.14 Alcohol abuse with alcohol-induced mood disorder; E86.0 Dehydration; F10.120 Alcohol abuse with intoxication, uncomplicated; Y90.8 Blood alcohol level of 240 mg/100 ml or more; Z78.1 Physical restraint status
CPT/HCPCS: 70450; 71010; 80048; 80053; 80307; 81001; 82550; 82552; 84443; 85007; 85025; 85027; 93005; 96360; 96372; J1630; J2060; J7030